=== PATIENT | male | born 1950 | race Caucasian/White ===

== ENCOUNTER → 2019-06-25 07:39 | Outpatient (CLI) | payer OTHER, SELFPAY ==
--- NOTE | 2019-06-25 | DI.US.S_ITS ---
PROCEDURE: US ABD AORTA ANEURYSM SCREEN INDICATIONS: ELEVATED CHOLESTEROL TECHNIQUE: Real time scanning was performed of the aorta and iliac arteries, with image documentation. COMPARISON: None. FINDINGS: Aorta: Proximal aortic diameter measures 1.8 cm. Mid-aorta measures 1.5 cm. Distal aortic diameter is 1.7 cm. Iliac arteries: Right common iliac artery measures 0.9 cm. Left common iliac artery measures 0.9 cm. IMPRESSION: Negative for aneurysm. Dictated by: Eric Varghese M.D. on 06/25/2019 at 13:18 Approved by: Eric Varghese M.D. on 06/25/2019 at 13:18
== END ==
PROVIDERS: PCP Student in an Organized Health Care Education/Training Program; Referring Provider Student in an Organized Health Care Education/Training Program; Visit Provider Student in an Organized Health Care Education/Training Program
DX: Z13.6 Encounter for screening for cardiovascular disorders (principal); E78.00 Pure hypercholesterolemia, unspecified; Z82.49 Family history of ischemic heart disease and other diseases of the circulatory system
CPT/HCPCS: 76706

== ENCOUNTER → 2020-06-07 07:26 | Outpatient (CLI) | payer MEDICARE, SELFPAY ==
[2020-06-07] MEDS: COVID-19 VACC #1, MRNA(MOD) 100 MCG/0.5 ML VIAL IM (07:32)
== END ==
PROVIDERS: PCP Student in an Organized Health Care Education/Training Program; Visit Provider Internal Medicine
DX: Z23 Encounter for immunization (principal)
CPT/HCPCS: 0011A; 91301

== ENCOUNTER → 2020-07-05 07:21 | Outpatient (CLI) | payer MEDICARE, SELFPAY ==
[2020-07-05] MEDS: COVID-19 VACC #2, MRNA(MOD) 100 MCG/0.5 ML VIAL IM (07:57)
== END ==
PROVIDERS: PCP Student in an Organized Health Care Education/Training Program; Visit Provider Internal Medicine
DX: Z23 Encounter for immunization (principal)
CPT/HCPCS: 0012A; 91301

== ENCOUNTER → 2021-08-31 17:15 | Outpatient (CLI) | payer OTHER, SELFPAY ==
--- NOTE | 2021-08-31 | DI.RAD.S_ITS ---
PROCEDURE: XR HIP W PEL IF DONE RT 2V INDICATIONS: POSSIBLE RIGHT HIP DISPLACEMENT TECHNIQUE: 2 views of the hip were acquired. COMPARISON: None. FINDINGS: Bones: No fractures or dislocations. No suspicious bony lesions. The visualized pelvic ring appears intact. Soft tissues: No suspicious soft tissue calcifications or masses. IMPRESSION: No acute osseous abnormality. Dictated by: David Nicolas M.D. on 08/31/2021 at 21:28 Approved by: David Nicolas M.D. on 08/31/2021 at 21:29
== END ==
PROVIDERS: PCP Student in an Organized Health Care Education/Training Program; Referring Provider Student in an Organized Health Care Education/Training Program; Visit Provider Student in an Organized Health Care Education/Training Program
DX: M25.551 Pain in right hip (principal)
CPT/HCPCS: 73502

== ENCOUNTER → 2021-11-30 09:03 | Outpatient (CLI) | payer OTHER, SELFPAY ==
--- NOTE | 2021-11-30 09:04 | DI.MRI.S_ITS ---
PROCEDURE: MR ABDOMEN WO/W CON INDICATIONS: Calculus of gallbladder without cholecystitis TECHNIQUE: Coronal HASTE, axial 2D FLASH in- and [id number]; axial breath-hold T2 FSE. Dynamic axial VIBE during the administration of contrast; post-contrast coronal VIBE or 2D FLASH with fat saturation from the hepatic dome to the iliac crests. Optional diffusion weighted imaging and ADC may be performed. COMPARISON: None. FINDINGS: Image quality: Excellent. Lung bases: No basal pleural effusions. Heart size is normal. Solid organs: Liver is normal in size and enhancement. Gallbladder is partially distended, contains several dependently layering stones near the neck measuring up to 7 mm in size, and demonstrates a normal wall thickness. No pericholecystic fluid.. Biliary system is non dilated. No choledocholithiasis. Pancreas is normal in morphology. No pancreatic duct dilatation. Spleen is normal in size and enhancement. No adrenal nodules. Both kidneys demonstrate normal size and enhancement, without hydronephrosis. Two left upper pole renal cysts. Nodes and vessels: No retroperitoneal or mesenteric adenopathy by size criteria. Aorta and inferior vena cava are normal in size. Moderate nonenhancing abdominal aortic atherosclerosis. Bowel and peritoneum: Unenhanced bowel loops are normal in caliber. No free fluid. Bones and soft tissues: No ventral hernias. Bone marrow is normal in overall signal. IMPRESSION: 1. Cholelithiasis without MR findings to suggest choledocholithiasis or acute cholecystitis. 2. Normal liver morphology and signal. 3. Small left upper pole renal cysts. Dictated by: Lisa Best M.D. on 11/30/2021 at 10:52 Approved by: Lisa Best M.D. on 11/30/2021 at 10:59
== END ==
PROVIDERS: PCP Family Medicine; Referring Provider Physician Assistant; Visit Provider Physician Assistant
DX: K80.20 Calculus of gallbladder without cholecystitis without obstruction (principal); R79.89 Other specified abnormal findings of blood chemistry; R63.4 Abnormal weight loss; R76.8 Other specified abnormal immunological findings in serum
CPT/HCPCS: 74183